=== PATIENT | male | born 1995 | race Caucasian/White ===

== ENCOUNTER 2018-12-24 14:20 | Emergency (ER) | payer BC ==
[2018-12-24 14:46] VITALS: BP 138/87
--- NOTE | 2018-12-24 14:48 | UC ---
General HPI - HPI Summary HPI Summary: 23 yo male presents with diarrhea. He tells me that for the last 2 days he has had diarrhea with mild generalized abdominal cramping. 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 He says that he tested himself with a test at his work and he was positive. He is eating, drinking, and tolerating po well. Thinks he may have a low grade fever and has been taking tylenol for this. Denies cough, chest pain, n/v, blood in stool, dysuria. - History of Current Complaint Stated Complaint: FEVER, AND DIARRHEA Time Seen by Provider: 12/24/18 14:45 Hx Obtained From: Patient Onset/Duration: Sudden Onset Onset Severity: Mild Current Severity: Mild Pain Intensity: 2 - Allergy/Home Medications Allergies/Adverse Reactions: Allergies Allergy/AdvReac Type Severity Reaction Status Date / Time No Known Allergies Allergy Verified 12/24/18 14:47 PMH/Surg Hx/FS Hx/Imm Hx - Additional Past Medical History Additional PMH: None - Surgical History Surgical History: None - Family History Known Family History: Positive: Non-Contributory - Social History Occupation: Student Lives: Dormitory/Roommates Alcohol Use: Occasionally Substance Use Type: None Smoking Status (MU): Never Smoked Tobacco Review of Systems All Other Systems Reviewed And Are Negative: No Constitutional: Positive: Negative Skin: Positive: Negative Respiratory: Positive: Negative Cardiovascular: Positive: Negative Gastrointestinal: Positive: Diarrhea Genitourinary: Positive: Negative Motor: Positive: Negative Neurological: Positive: Negative Psychological: Positive: Negative Physical Exam - Summary Physical Exam Summary: GENERAL: NAD. WDWN. No pain distress. SKIN: No rashes, sores, lesions, or open wounds. NECK: Supple. Nontender. No lymphadenopathy. CHEST: CTAB. No r/r/w. No accessory muscle use. Breathing comfortably and in no distress. CV: RRR. Pulses intact. Cap refill <2seconds ABDOMEN: Soft. NTTP. No distention or guarding. No CVA tenderness. Bowel sounds present NEURO: Alert. PSYCH: Age appropriate behavior. Triage Information Reviewed: Yes Vital Signs: Initial Vital Signs Temp 98.6 F 12/24/18 14:42 Pulse 89 12/24/18 14:42 Resp 18 12/24/18 14:42 BP 138/87 12/24/18 14:42 Pulse Ox 98 12/24/18 14:42 Vital Signs Reviewed: Yes Course/Dx - Course Course Of Treatment: Discussed with pt that he is healthy and not immunocompromised. Educated the crypto is a self limiting disease and encouraged to continue po fluids and rest. He is requesting Nitazoxanide. I discussed that this is generally not indicated unless severe symptoms, immunocompromised, or prolonged symptoms greater than 10-14 days. Pt continued to wish to try Nitazoxanide, therefore will prescribe at this time. Will also have him complete a formal stool culture to confirm crypto. - Diagnoses Provider Diagnosis: Diarrhea Discharge ED - Sign-Out/Discharge Documenting (check all that apply): Patient Departure All imaging exams completed and their final reports reviewed: No Studies - Discharge Plan Condition: Stable Disposition: HOME Prescriptions: Nitazoxanide [Alinia] 500 mg PO BID #6 tab Referrals: No Primary Care Phys,NOPCP [Primary Care Provider] - Additional Instructions: If you develop a fever, shortness of breath, chest pain, new or worsening symptoms - please call your PCP or go to the ED immediately. 1) Rest and drink plenty of clear fluids 2) Advance your diet as tolerated - Billing Disposition and Condition Condition: STABLE Disposition: Home
--- NOTE | 2018-12-28 14:05 | UC ---
- Progress Note Progress Note: PROGRESS NOTE: LAB RESULTS:indeterminate for cryptosporidium. Stool culture negative, Shigella toxinnot performed. MDM:patient requested antibiotic treatment. He was put on a course of treatment and informed that cryptosporidium is a self-limiting disease. He is negative for Giardia. Plan:Call patient and check on status. Recheck if he is not improving. Stuart Florian MD Course/Dx - Diagnoses Provider Diagnoses: Diarrhea Discharge ED - Sign-Out/Discharge Documenting (check all that apply): Post-Discharge Follow Up All imaging exams completed and their final reports reviewed: No Studies - Discharge Plan Condition: Stable Disposition: HOME Prescriptions: Nitazoxanide [Alinia] 500 mg PO BID #6 tab Referrals: No Primary Care Phys,NOPCP [Primary Care Provider] - Additional Instructions: If you develop a fever, shortness of breath, chest pain, new or worsening symptoms - please call your PCP or go to the ED immediately. 1) Rest and drink plenty of clear fluids 2) Advance your diet as tolerated - Billing Disposition and Condition Condition: STABLE Disposition: Home
== END 2018-12-24 14:59 | disposition home or self-care (01) ==
LOC: UCEAST 14:20
DX: R19.7 Diarrhea, unspecified (principal)
CPT/HCPCS: 99202; G0463